=== PATIENT | female | born 1960 | race Two or more races ===

== ENCOUNTER 2018-10-06 07:27 | Outpatient (CLI) | payer OTHER | END 2018-10-06 07:34 | disposition home or self-care (01) | LOC: MAMO-SONO 07:27 | DX: N60.11 Diffuse cystic mastopathy of right breast (principal); Z80.3 Family history of malignant neoplasm of breast; Z12.31 Encounter for screening mammogram for malignant neoplasm of breast ==

== ENCOUNTER 2018-12-09 07:58 | Outpatient (CLI) | payer OTHER | END 2018-12-09 08:11 | disposition home or self-care (01) | LOC: SONOGRAMA 07:58 | DX: R10.33 Periumbilical pain (principal); R10.32 Left lower quadrant pain; R82.998 Other abnormal findings in urine ==

== ENCOUNTER 2020-01-11 07:56 | Outpatient (CLI) | payer OTHER | END 2020-01-11 07:59 | disposition home or self-care (01) | LOC: MAMO-SONO 07:56 | DX: Z12.31 Encounter for screening mammogram for malignant neoplasm of breast (principal); Z87.898 Personal history of other specified conditions; Z80.3 Family history of malignant neoplasm of breast; N60.11 Diffuse cystic mastopathy of right breast ==

== ENCOUNTER 2021-05-30 08:08 | Outpatient (CLI) | payer OTHER | END 2021-05-30 08:23 | disposition home or self-care (01) | LOC: MAMO-SONO 08:08 | PROVIDERS: ATTEND Family Medicine | DX: N64.59 Other signs and symptoms in breast (principal); Z80.3 Family history of malignant neoplasm of breast; Z79.890 Hormone replacement therapy; N60.11 Diffuse cystic mastopathy of right breast; N60.12 Diffuse cystic mastopathy of left breast; Z12.31 Encounter for screening mammogram for malignant neoplasm of breast ==

== ENCOUNTER 2021-12-05 07:23 | Outpatient (CLI) | payer OTHER | END 2021-12-05 07:58 | disposition home or self-care (01) | LOC: SONOGRAMA 07:23 | DX: N60.11 Diffuse cystic mastopathy of right breast (principal); N60.12 Diffuse cystic mastopathy of left breast; Z12.31 Encounter for screening mammogram for malignant neoplasm of breast ==

== ENCOUNTER 2022-06-16 07:31 | Outpatient (CLI) | payer OTHER | END 2022-06-16 07:39 | disposition home or self-care (01) | LOC: SONOGRAMA 07:31 | PROVIDERS: ATTEND Internal Medicine Gastroenterology | DX: R16.0 Hepatomegaly, not elsewhere classified (principal); R10.13 Epigastric pain ==

== ENCOUNTER 2023-02-02 07:40 | Outpatient (CLI) | payer OTHER | END 2023-02-02 07:49 | disposition home or self-care (01) | LOC: MAMO-SONO 07:40 | PROVIDERS: ATTEND Family Medicine | DX: N60.19 Diffuse cystic mastopathy of unspecified breast (principal); Z80.3 Family history of malignant neoplasm of breast ==

== ENCOUNTER 2024-01-06 07:01 | Outpatient (CLI) | payer OTHER | END 2024-01-06 07:10 | disposition home or self-care (01) | LOC: RAD 07:01 | PROVIDERS: ATTEND Family Medicine | DX: M48.02 Spinal stenosis, cervical region (principal) ==

== ENCOUNTER 2024-08-11 07:11 | Outpatient (CLI) | payer OTHER | END 2024-08-11 07:21 | disposition home or self-care (01) | LOC: RAD 07:11 | PROVIDERS: ATTEND Internal Medicine Gastroenterology | DX: R10.13 Epigastric pain (principal); K56.600 Partial intestinal obstruction, unspecified as to cause ==

== ENCOUNTER 2025-03-15 13:46 | Outpatient (CLI) | payer OTHER | END 2025-03-15 13:49 | disposition home or self-care (01) | LOC: MAMO-SONO 13:46 | PROVIDERS: ATTEND Family Medicine | DX: N60.19 Diffuse cystic mastopathy of unspecified breast (principal) ==

== ENCOUNTER 2025-04-27 09:06 | Outpatient (CLI) | payer OTHER | END 2025-04-27 09:09 | disposition home or self-care (01) | LOC: RAD 09:06 | PROVIDERS: ATTEND Family Medicine | DX: M54.50 Low back pain, unspecified (principal) ==